=== PATIENT | male | born 1965 | race Caucasian/White ===

== ENCOUNTER → 2020-04-02 14:00 | Outpatient (BNVA) | payer OTHER, SELFPAY | PROVIDERS: Visit Provider Specialist | DX: G31.84 Mild cognitive impairment of uncertain or unknown etiology (principal); F07.81 Postconcussional syndrome | CPT/HCPCS: 99204 ==

== ENCOUNTER 2020-06-27 10:46 | Outpatient (CLI) | payer OTHER, SELFPAY ==
--- NOTE | 2020-06-27 11:18 | MR_ITS ---
WS: [id number] MRI BRAIN WITHOUT CONTRAST HISTORY: POSTCONCUSSIONAL SYNDROME COMPARISON: None available. TECHNIQUE: Diffusion imaging, multiplanar T1, T2 and FLAIR imaging obtained. No evidence for acute infarct or hemorrhage. Pineda-white matter differentiation is normal. No microhem orrhages from the prior trauma. No signal abnormalities. There are a few scattered areas of increased signal in the FLAIR sequence which are probably related to microvascular ischemic disease. No remote or acute infarcts are volume loss. Ventricles and extra-axial spaces are normal. No inferior displacement of cerebellar tonsils. The sella turcica and pituitary gland are unremarkabl e. Posterior fossa is also unremarkable. Dural venous sinuses and [place] demonstrate no abnormality on this unenhanced studies. Paranasal sinuses: Clear. Mastoid air cells: Normal. Calvarium and scalp: Intact. MR/MR head wo con* [id number] IMPRESSION: 1. No acute infarct or hemorrhage. 2. No prior infarct. No microhemorrhages.
== END 2020-06-27 10:47 | disposition home or self-care (01) ==
LOC: RADSHAW 10:47 → RADWPI 11:06
PROVIDERS: Visit Provider Specialist
DX: G31.84 Mild cognitive impairment of uncertain or unknown etiology (principal); F07.81 Postconcussional syndrome
CPT/HCPCS: 70551; 95816

== ENCOUNTER → 2020-11-14 14:48 | Outpatient (BNVA) | payer OTHER, SELFPAY | PROVIDERS: PCP Nurse Practitioner Family; Visit Provider Specialist | DX: R29.818 Other symptoms and signs involving the nervous system (principal); F07.81 Postconcussional syndrome | CPT/HCPCS: 99214 ==